=== PATIENT | female | born 1950 | race Caucasian/White ===

== ENCOUNTER 2020-11-14 13:34 | Outpatient (CLI) | payer OTHER, MEDICARE, SELFPAY | END 2020-11-14 13:35 | disposition home or self-care (01) | LOC: ANHCOVIDVC 13:34 | PROVIDERS: PCP Family Medicine Adolescent Medicine | DX: Z23 Encounter for immunization (principal) | CPT/HCPCS: 0001A; 91300 ==

== ENCOUNTER 2020-12-05 13:31 | Outpatient (CLI) | payer OTHER, MEDICARE, SELFPAY | END 2020-12-05 13:32 | disposition home or self-care (01) | LOC: ANHCOVIDVC 13:31 | PROVIDERS: PCP Family Medicine Adolescent Medicine | DX: Z23 Encounter for immunization (principal) | CPT/HCPCS: 0002A; 91300 ==

== ENCOUNTER → 2021-12-24 14:15 | Outpatient (CLI) | payer OTHER, SELFPAY ==
--- NOTE | ~2021-12-24 | MM_ITS ---
EXAMINATION: MM screening [facility] HISTORY: Screening mammogram TECHNIQUE: Craniocaudal and mediolateral oblique 3-D tomosynthesis images were obtained and synthetic 2-D images were generated. CAD analysis was submitted and interpreted. COMPARISON: 09/27/2019 diagnostic right mammogram 04/07/2019 diagnostic right mammogram and limited right breast ultrasound 04/02/2019 bilateral screening mammogram BREAST PARENCHYMAL COMPOSITION: There are scattered areas of fibroglandular density. FINDINGS: There is no evidence of suspicious mass, calcification, or architectural distortion to sugg est malignancy in either breast. There has been no suspicious interval change. IMPRESSION: 1. No mammographic evidence of malignancy. 2. Recommend routine screening mammography in one year. BI-RADS Category 1: Negative Reviewed, dictated and finalized at location A.
== END ==
PROVIDERS: PCP Family Medicine Adolescent Medicine; Visit Provider Family Medicine Adolescent Medicine
DX: Z12.31 Encounter for screening mammogram for malignant neoplasm of breast (principal)
CPT/HCPCS: 77063; 77067

== ENCOUNTER → 2022-06-20 09:32 | Outpatient (CLI) | payer OTHER, SELFPAY ==
--- NOTE | ~2022-06-20 | DEXA_ITS ---
Bone Density Report Name: SHAE JAMIL Age: 71 Sex: Female Ethnicity: White Date of : 1950 Indication: postmenopausal; screening for osteoporosis; height loss; Referring Provider: LURDES MONTOYA Study: Bone densitometry was performed. Exam Date: June 20, 2022 Accession number: [id number] Bone Density: Region BMD T-score Z-score Classification AP Spine (L1-L4) 1.169 1.1 3.4 Normal Femoral Neck (Left) 0.813 -0.3 1.7 Normal Total Hip (Left) 1.181 2.0 3.7 Normal Femoral Neck (Right) 0.825 -0.2 1.8 Normal Total Hip (Right) 1.163 1.8 3.5 Normal Total Hip Mean 1.172 1.9 3.6 Normal World Health Organization criteria for BMD impression classify patients as: Normal (T-score at or above -1.0), Osteopenia (T-score between -1.0 and -2.5), or Osteoporosis (T-score at or below -2.5). 10-year Fracture Risk: FRAX not reported because: All T-scores for Spine Total, Hip Total, Femoral Neck at or above -1.0 Previous Exams: Region Exam Age BMD T-score BMD Change BMD Change Date g/cm2 vs Baseline vs Previous AP Spine(L1-L4) 06/20/2022 71 1.169 1.1 0.017 0.009 10/20/2012 62 1.161 1.0 0.008 0.008 08/05/2008 57 1.152 1.0 Total Hip(Left) 06/20/2022 71 1.181 2.0 0.009 0.002 10/20/2012 62 1.179 1.9 0.007 0.007 08/05/2008 57 1.172 1.9 Total Hip(Right) 06/20/2022 71 1.163 1.8 0.017 0.004 10/20/2012 62 1.159 1.8 0.014 0.014 08/05/2008 57 1.146 1.7 *Denotes significance at 95% confidence level, LSC for AP Spine = 0.022 g/cm2, LSC for Total Hip = 0.027 g/cm2 Clinical Information Provided by Patient: Has used the following medications: Vitamin D, Calcium Patient maximum height was 66.7 Menopause Age: 44 Drinks caffeinated beverages Onset of menses at age 9 Number of children 1 Impression: The patient has normal bone mass. No significant bone loss was observed. Discussion: BONE DENSITY IS ABOVE THE MINIMUM DESIRABLE LEVEL AT ALL SKELETAL SITES TESTED. This patient?s bone mineral density is above the minimum desirable level (T-score -1.0 or better) at all sites measured. The patient should follow a healthful lifestyle (good nutrition with adequate calcium and vitamin D, and appropriate weight-bearing exercise). Follow-Up: Consider repeating this study in 5 years or sooner if there
== END ==
PROVIDERS: PCP Family Medicine Adolescent Medicine; Visit Provider Physician Assistant
DX: Z78.0 Asymptomatic menopausal state (principal)
CPT/HCPCS: 77080

== ENCOUNTER → 2023-01-20 13:11 | Outpatient (CLI) | payer OTHER, SELFPAY ==
--- NOTE | ~2023-01-20 | MM_ITS ---
EXAMINATION: MM screening [facility] HISTORY: Screening mammogram TECHNIQUE: Craniocaudal and mediolateral oblique 3-D tomosynthesis images were obtained and synthetic 2-D images were generated. CAD analysis was submitted and interpreted. COMPARISON: 12/24/2021, 10/01/2019, 04/07/2019, 04/02/2019 BREAST PARENCHYMAL COMPOSITION: There are scattered areas of fibroglandular density. FINDINGS: No suspicious mass, calcification, or architectural distortion are identified in either [place] ast to suggest malignancy. There has been no suspicious interval change. IMPRESSION: 1. No mammographic evidence of malignancy. 2. Recommend routine screening mammography in one year. BI-RADS Category 1: Negative Reviewed, dictated and finalized at location A.
== END ==
PROVIDERS: PCP Family Medicine Adolescent Medicine; Visit Provider Family Medicine Adolescent Medicine
DX: Z12.31 Encounter for screening mammogram for malignant neoplasm of breast (principal)
CPT/HCPCS: 77063; 77067

== ENCOUNTER 2024-02-03 14:22 | Outpatient (CLI) | payer OTHER, SELFPAY ==
--- NOTE | ~2024-02-03 | MM_ITS ---
EXAMINATION: MM screening [facility] HISTORY: Screening TECHNIQUE: Craniocaudal and mediolateral oblique 3-D tomosynthesis images were obtained and synthetic 2-D images were generated. CAD analysis was submitted and interpreted. COMPARISON: Comparison to multiple prior studies sequentially, with oldest reviewed study dated 02/27. BREAST PARENCHYMAL COMPOSITION: Not dense: There are scattered areas of fibroglandular density. FINDINGS: There is no evidence of suspicious mass, calcification, or architectural distortion to sugg est malignancy in either breast. There has been no suspicious interval change. IMPRESSION: 1. No mammographic evidence of malignancy. 2. Recommend routine screening mammography in one year. BI-RADS Category 1: Negative Reviewed, dictated and finalized at location B.
== END 2024-02-03 14:23 ==
LOC: MICIMG 14:24
PROVIDERS: PCP Family Medicine Adolescent Medicine; Visit Provider Family Medicine Adolescent Medicine
DX: Z12.31 Encounter for screening mammogram for malignant neoplasm of breast (principal)
CPT/HCPCS: 77063; 77067

== ENCOUNTER 2025-06-03 13:35 | Outpatient (CLI) | payer OTHER, SELFPAY ==
--- OUTSIDE RECORDS SUMMARY | 2001-08-12 19:00 | XMS_ITS | Continuity of Care Document ---
Author Organization [facility] Address [address] [place] [address] Phone Care Team Providers Care Power Press Operator Name Role Phone Ann OD, Greg Unavailable Unavailable Advance Directives Directive Yes / No Effective Date File Name No Information Encounters Encounter Description Practice Location Reason(s) For Visit Diagnoses Date Provider Providers Copied on Encounter [facility], [address], [place], [place], [id number], [place] tel:[phone] [facility] No Information Dec-0 6-200 1 Ann OD Greg. [address] , [address], [place], [address], [place]. tel:[phone] Family History Family Member Type Diagnosis Age At Onset No Information Payers Payer name Insurance type Covered alliance party ID Authoriza tion(s) No Information Social History Type Description Quantity Date Captured Comments Sex Female Smoking Status No Information Chief Complaint And Reason For Visit No Information Reason For Referral Reason For Referral No Information History Of Present Illness Encounter Date Complaint History Of Prese nt Illness No Information Functional Status Date Functional Assessmen t No Information Instructions Date Instruction Additional Infor mation No Information Assessments Type Assessment Date No Information Patient Care Teams Name Effective Dates (start - stop) Status Members No Information
--- OUTSIDE RECORDS SUMMARY | 2025-06-03 13:37 | XMS_ITS | Clinical Summary ---
Author Organization [facility] Address [address] [place] [address] Care Team Providers Care Entry Level Account Representative Name Role Phone Alex Valle MD Primary Care Provider [phone] Pop Hull MD Unavailable [phone] Allergies Active Allergy Reactions Criticality Noted Date Comments Griseofulvin Rash,Swelling Low 04/03/2016 Statins Myalgias 10/03/2016 Medications celecoxib (CELEBREX) 200 MG capsule Take 1 capsule by mouth daily. 6 Active levothyroxine 75 MCG tablet Take 1 tablet by mouth daily. 6 Active Cholecalciferol (VITAMIN D) 2000 UNITS Tab Take 1 tablet by mouth daily. 7 Active fish oil 1000 MG Cap capsule Take 1 capsule (1,000 mg total) by mouth daily. 90 capsule 9 Active diphenhydrAMINE HCl (BENADRYL OR) Take by mouth as needed. Active melatonin 5 MG tablet Take 5 mg by mouth nightly as needed. Active Multiple Vitamins-Minera ls (HAIR SKIN AND NAILS FORMULA OR) Active dilTIAZem CD (CARDIZEM CD) 180 MG 24 hr capsule Take 1 capsule (180 mg total) by mouth daily. 90 capsule 1 5 Active warfarin (COUMADIN) 5 MG tablet TAKE 2 TABLETS (10MG) BY MOUTH ON FRIDAY AND FRIDAY EVENINGS THEN TAKE 1.5 TABLETS (7.5MG) ALL OTHER EVENINGS 140 tablet Active Active Problems Problem Noted Date Diagnosed Date Essential hypertension 04/03/2016 Other hyperlipidemia 04/03/2016 Atrial fibrillation, chronic ([facility]) 0 03/15/2016 Atrial flutter ([facility]) Vitamin D deficiency Encounters Date Type Department Care Team Description 05/24/2025 Anti-Coag Telephone Call [facility] [address] [id number] Velvet [place] RN Anticoagulation (protime) 05/03/2025 Anti-Coag Telephone Call [facility] [address] [address] [place]vet [place], RN Anticoagulation (protime) 04/04/2025 Anti-Coag Telephone Call [facility] [phone] [place]vet [place], RN Anticoagulation (protime) 03/04/2025 Anti-Coag Telephone Call [facility] [phone] [place]vet [place], RN Anticoagulation (protime) from Last 3 Months Family History Medical History Relation Comments No premature vascular disease Other Relation Status Comments Other Social History Tobacco Use Types Packs/Day Years Used Date Smoking Tobacco: Former Smokeless Tobacco: Never Tobacco Cessation:Counseling Given: Not Answered Alcohol Use Standard Drinks/Week Comments Yes 0 (1 standard drink = 0.6 oz pur e alcohol) rarely Comments Unknown Sex and Gender Information Value Date Recorded Sex Assigned at Not on file Legal Sex Female 10:37 PM CDT Gender Identity Not on file Sexual Orientation Not on file Occupation Industry Job Start Date Job End Date Not on file Not on file Not on file Not on file Last Filed Vital Signs Vital Sign Reading Time Taken Comments Blood Pressure 130/78 02/15/2025 1:58 PM CDT Pulse 73 02/15/2025 1:58 PM CDT Temperature - - Respiratory Rate - - Oxygen Saturation 97% 02/15/2025 1:58 PM CDT Inhaled Oxygen Concentration - - Weight 69.9 kg (154 lb) 02/15/2025 1:58 PM CDT Height 165.1 cm (5' 5) 02/15/2025 1:58 PM CDT Body Mass Index 25.63 02/15/2025 1:58 PM CDT Plan of Treatment Upcoming Encounters Date Type Department Care Team (Late st Contact Info) Description 08/17/2025 1:45 PM LIGHT CLEANER Office Visit [facility], [facility] [address] [place], [place] [phone] Pop Hull MD Three [facility]. [address] [place], [place] [phone] Health Maintenance Due Date Last Done Comments Hepatitis C 1966 DTaP, Tdap and Td Vaccines (1 - Tdap) 1967 Pneumococcal Vaccine: 50+ Years (1 of 1 - PCV) 1998 Zoster Vaccines (1 of 2) 1998 Annual Medicare Wellness Visit 2013 Dexa Scan (General) 2013 RSV Immunization or 60+ Years (1 - 1-dose 75+ series) 2023 COVID-19 Vaccine ( season) 2025 06/14/2021, 12/05/2020, 12/05/2020, Additional history exists Meningococcal B Vaccine Aged Out No l onger eligible based on patient's age to complete this topic Meningococcal Vaccine Aged Out No maria elena kathy eligible based on patient's age to complete this topic RSV Immunizations Under 20 Months Aged Out No longer eligible based on patient's age to complete this topic Procedures Procedure Name Priority Date/Time Associated Diagnosis Comments PROTIME (OUTSIDE LAB) Routine 05/23/2025 PT/INR (OUTSIDE LAB) Routine 05/02/2025 PROTIME (OUTSIDE LAB) Routine 04/04/2025 PROTIME (OUTSIDE LAB) Routine 03/03/2025 from Last 3 Months Results * PROTIME (OUTSIDE LAB) (05/23/2025) Only the most recent of3 resultswithin the time period is included. PROTIME 32.4 INR 3.3 05/23/2025 us Default History Genericprovider LAB-OUTSIDE/ABST RACTED Final Result * PT/INR (OUTSIDE LAB) (05/02/2025) INR WHOLE BLOOD 3.50 05/02/2025 us Default History Genericprovider LAB-OUTSIDE/ABST RACTED Final Result from Last 3 Months [place] [id number] Care Teams Entry Level Account Representative Relationship Specialty Start Date End Date Alex Valle MD [address] [facility] [address] [place] [address] PCP - General FAMILY PRACTICE 03/08/16 Pop Hull MD [facility] [address] [place] [address] Una Countersinker CARDIOVASCULAR DISEASE 03/20/18
--- OUTSIDE RECORDS SUMMARY | 2025-06-03 13:37 | XMS_ITS | Encounter Summary ---
Author Organization [facility] Address [facility] [place] [address] Care Team Providers Care Auto Rebuilder Name Role Phone Alex Valle MD Primary Care Provider [phone] Pop Hull MD Unavailable [phone] Encounter Details Date Type Department Care Team (Late Contact Info) Description 07/24/2023 Abstract [facility] [facility], [facility] [address] [place] [address] Carol Ann Mayers MA Social History Tobacco Use Types Packs/Day Years Used Date Smoking Tobacco: Former Smokeless Tobacco: Never Alcohol Use Standard Drinks/Week Comments Yes 0 [...] file Not on file Not on file documented as of this encounter Plan of Treatment Upcoming Encounters Date Type Department Care Team (Late Contact Info) Description 08/17/2025 1:45 PM ADULT MANAGER Office Visit [facility], [place] [address] [place], [place] [phone] Pop Hull MD [address] [address] documented as of this encounter Procedures Procedure Name Priority Date/Time Associated Diagnosis Comments PROTIME (OUTSIDE LAB) Routine 05/23/2025 PROTIME (OUTSIDE LAB) Routine 04/04/2025 PROTIME (OUTSIDE LAB) Routine 03/03/2025 PROTIME (OUTSIDE LAB) Routine 02/04/2025 PROTIME (OUTSIDE LAB) Routine 12/01/2024 PROTIME (OUTSIDE LAB) Routine 11/01/2024 PROTIME (OUTSIDE LAB) Routine 09/06/2024 PROTIME (OUTSIDE LAB) Routine 07/05/2024 PROTIME (OUTSIDE LAB) Routine 03/30/2024 PROTIME (OUTSIDE LAB) Routine 02/27/2024 PROTIME (OUTSIDE LAB) Routine 01/16/2024 PROTIME (OUTSIDE LAB) Routine 12/12/2023 PROTIME (OUTSIDE LAB) Routine 10/07/2023 PROTIME (OUTSIDE LAB) Routine 09/02/2023 PROTIME (OUTSIDE LAB) Routine 07/23/2023 documented in this encounter Results * PROTIME (OUTSIDE LAB) (05/23/2025) PROTIME 32.4 INR 3.3 05/23/2025 us Default History Genericprovider LAB-OUTSIDE/ABST RACTED Final Result * PROTIME (OUTSIDE LAB) (04/04/2025) PROTIME 24.0 INR 2.4 04/04/2025 us Default History Genericprovider LAB-OUTSIDE/ABST RACTED Final Result * PROTIME (OUTSIDE LAB) (03/03/2025) PROTIME 22.8 INR 2.2 03/03/2025 us Default History Genericprovider LAB-OUTSIDE/ABST RACTED Final Result * PROTIME (OUTSIDE LAB) (02/04/2025) PROTIME 25.2 INR 2.5 02/04/2025 us Default History Genericprovider LAB-OUTSIDE/ABST RACTED Final Result * PROTIME (OUTSIDE LAB) (12/01/2024) PROTIME 28.2 INR 2.8 12/01/2024 us Default History Genericprovider LAB-OUTSIDE/ABST RACTED Final Result * PROTIME (OUTSIDE LAB) (11/01/2024) PROTIME 25.7 INR 2.6 11/01/2024 us Default History Genericprovider LAB-OUTSIDE/ABST RACTED Final Result * PROTIME (OUTSIDE LAB) (09/06/2024) PROTIME 41.9 INR 4.3 09/06/2024 us Default History Genericprovider LAB-OUTSIDE/ABST RACTED Final Result * PROTIME (OUTSIDE LAB) (07/05/2024) PROTIME 31.1 INR 3.1 07/05/2024 us Default History Genericprovider LAB-OUTSIDE/ABST RACTED Final Result * PROTIME (OUTSIDE LAB) (03/30/2024) PROTIME 21.0 INR 2.1 03/30/2024 us Default History Genericprovider LAB-OUTSIDE/ABST RACTED Final Result * PROTIME (OUTSIDE LAB) (02/27/2024) PROTIME 22.6 INR 2.2 02/27/2024 us Default History Genericprovider LAB-OUTSIDE/ABST RACTED Final Result * PROTIME (OUTSIDE LAB) (01/16/2024) PROTIME 25.1 INR 2.5 01/16/2024 us Default History Genericprovider LAB-OUTSIDE/ABST RACTED Final Result * PROTIME (OUTSIDE LAB) (12/12/2023) PROTIME 24.0 INR 2.4 12/12/2023 us Default History Genericprovider LAB-OUTSIDE/ABST RACTED Final Result * PROTIME (OUTSIDE LAB) (10/07/2023) PROTIME 23.3 INR 2.3 10/07/2023 us Default History Genericprovider LAB-OUTSIDE/ABST RACTED Final Result * PROTIME (OUTSIDE LAB) (09/02/2023) PROTIME 33.6 INR 3.4 09/02/2023 us Default History Genericprovider LAB-OUTSIDE/ABST RACTED Final Result * PROTIME (OUTSIDE LAB) (07/23/2023) PROTIME 20.7 INR 2.0 07/23/2023 us Default History Genericprovider LAB-OUTSIDE/ABST RACTED Final Result documented in this encounter Visit Diagnoses Not on filedocumented in this encounter Care Teams Auto Rebuilder Relationship Specialty Start Date End Date Alex Valle MD [address] [place] [address] [address] [place] [address] PCP - General FAMILY PRACTICE 03/08/16 Pop Hull MD [facility]. [facility] [address] [place] [address] [place] Dredge Operator Supervisor CARDIOVASCULAR DISEASE 03/20/18 documented as of this encounter
--- OUTSIDE RECORDS SUMMARY | 2025-06-03 13:37 | XMS_ITS | Encounter Summary ---
Author Organization [facility] Address [address] [place] [address] Care Team Providers Care International Logistics Coordinator Name Role Phone Richard Hein MD Unavailable Unavailable Alex Valle MD Primary Care Provider + [phone] Alex Valle MD Primary Care Provider + [phone] Pop Hull MD Unavailable [phone] Encounter Details Date Type Department Care Team (Late st Contact Info) Description 01/03/2016 Abstract [facility] AT [address] [address] Richard Hein MD Social History Tobacco Use Types Packs/Day Years Used Date Smoking Tobacco: Former Alcohol Use Standard Drinks/Week Comments Yes 0 (1 standard drink = 0.6 oz pur e alcohol) rarely Comments Unknown Sex and Gender Information Value Date Recorded Sex Assigned at Not on file Legal Sex Female 10:37 PM CDT Gender Identity Not on file Sexual Orientation Not on file Occupation Industry Job Start Date Job End Date Retired Not on file Not on file Not on file documented as of this encounter Plan of Treatment Upcoming Encounters Date Type Department Care Team (Late Contact Info) Description 08/17/2025 1:45 PM GASOLINE ENGINE INSPECTOR Office Visit [facility] THREE [facility], [place] [address] [place] [address] Pop Hull MD [address] [address] documented as of this encounter Visit Diagnoses Not on filedocumented in this encounter Care Teams International Logistics Coordinator Relationship Specialty Start Date End Date Alex Valle MD [address] [address] PCP - General FAMILY PRACTICE 03/08/16 Alex Valle MD [address] [address] PCP - General 01/11/16 03/07/16 Richard Hein MD [facility] Client Administrator CARDIOVASCULAR DISEASE 03/01/16 Pop Hull MD [facility]. [address] [place] [address] [place] Client Administrator CARDIOVASCULAR DISEASE 03/20/18 documented as of this encounter
--- OUTSIDE RECORDS SUMMARY | 2025-06-03 13:37 | XMS_ITS | Clinical Summary ---
Author Organization [facility] Address [address] [place] [address] Phone Care Team Providers Care Conveyor Belt Operator Name Role Phone Seda Chamberlain Primary Care Provider [phone] Allergies Active Allergy Reactions Criticality Noted Date Comments Griseofulvin Rash,Swelling Medium 04/03/2016 Mnmdgsb-Pqo-Vvq Reductase Inhibitors Mental status changes Low 10/03/2016 Medications warfarin (COUMADIN) 5 mg tablet 04/15/2022 Active levothyroxine (SYNTHROID) 75 mcg tablet 04/23/2022 Active docosahexaenoic acid-epa 120-180 mg capsule Take 1,000 mg by mouth daily 10/05/2018 Active diltiazem (TIAZAC) 180 mg 24 hr capsule Take 1 tablet by mouth daily 01/11/2021 Active cholecalciferol (VITAMIN D-3) 2000 unit tablet Take 1 tablet by mouth daily 10/03/2016 Active celecoxib (CeleBREX) 200 mg capsule 06/09/2022 Active phenazopyridine HCl (PHENAZOPYRIDINE ORAL) Take by mouth 2 (two) times a day Active multivitamin with minerals tablet Take by mouth Active DIPHENHYDRAMINE HCL ORAL Take by mouth as needed Active cod liver oiL oil Take by mouth daily Active Active Problems Problem Noted Date Diagnosed Date 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 Patient has scattered reticular veins to bilateral lower extremities. Patient denies swelling. Patient has not used compression therapy. Plan: Recommend medical grade compression stockings 20 30 mmHg. We will refer patient to Dr. Preston dermatology for further evaluation of reticular veins. Atrial flutter 06/26/2022 Vitamin D deficiency 06/26/2022 Essential hypertension 04/03/2016 Other hyperlipidemia 04/03/2016 Assessment & Plan (06/27/2022 10:48 AM CDT): Impression: Chronic hyperlipidemia, diet-controlled Plan: Continue management as per primary care provider. Atrial fibrillation, chronic 03/15/2016 Assessment & Plan (06/27/2022 10:49 AM CDT): Impression: Patient has a history of atrial fibrillation and is currently rate controlled. Patient is currently on Coumadin. Plan: Continue anticoagulation as per primary care provider. Immunizations Immunization Administration Dates Next Due Influenza, Trivalent, IM (MDV) 07/03/2012 Social History Tobacco Use Types Packs/Day Years Used Date Smoking Tobacco: Former Cigarettes 0.3 19 1 981 - 2000 Smokeless Tobacco: Never Tobacco Cessation:Counseling Given: No Personal Safety Answer Date Recorded Getting School Help Needed Not on file 10/18 Comments Unknown Sex and Gender Information Value Date Recorded Sex Assigned at Not on file Legal Sex Female 6:53 PM GEOPHYSICAL MANAGER Gender Identity Not on file Sexual Orientation Not on file Obstetrics History Last Filed Vital Signs Vital Sign Reading Time Taken Comments Blood Pressure - - Pulse - - Temperature - - Respiratory Rate - - Oxygen Saturation - - Inhaled Oxygen Concentration - - Weight 79.8 kg (176 lb) 06/26/2022 2:48 PM CDT Height 165.1 cm (5' 5) 06/26/2022 2:48 PM CDT Body Mass Index 29.29 06/26/2022 2:48 PM CDT Plan of Treatment Health Maintenance Due Date Last Done Comments Depression Screening 1950 Fall Risk Assessment 1950 Hepatitis C Screening 1950 Osteoporosis Screening-Bone Density Scan 1950 DTaP/Tdap/Td Vaccine (1 - Tdap) 1959 Hepatitis B Screening 1966 Pneumococcal vaccine 65+ (1 of 2 - PCV) 1967 Zoster Vaccine (1 of 2) 1998 Well Visit 65+ 2013 Influenza Vaccine (#1) 2025 07/03/2012 Insurance [facility] Care Teams Conveyor Belt Operator Relationship Specialty Start Date End Date Seda Chamberlain PA [address] [facility] [address] PCP - General Physician Wheel Loader Operator 06/25/22
--- OUTSIDE RECORDS SUMMARY | 2025-06-03 13:37 | XMS_ITS | Encounter Summary ---
Author Organization [facility] Address [facility] [place] [address] Care Team Providers Care Proctologist Name Role Phone Richard Hein MD Unavailable Unavailable Alex Valle MD Primary Care Provider + [phone] Alex Valle MD Primary Care Provider + [phone] Pop Hull MD Unavailable [phone] Encounter Details Date Type Department Care Team (Late st Contact Info) Description 03/01/2016 Abstract [facility] AT [address] [address] Carol Ann Mayers MA Social History Tobacco Use Types Packs/Day Years Used Date Smoking Tobacco: Former Comments Unknown Sex and Gender Information Value Date Recorded Sex Assigned at Not on file Legal Sex Female 10:37 PM CDT Gender Identity Not on file Sexual Orientation Not on file documented as of this encounter Plan of Treatment Upcoming Encounters Date Type Department Care Team (Late st Contact Info) Description 08/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 [address] [place], [place] [id number] documented as of this encounter Procedures Procedure Name Priority Date/Time Associated Diagnosis Comments PROTIME (OUTSIDE LAB) Routine 04/14/2020 LIPID PANEL Routine 04/14/2020 PROTIME (OUTSIDE LAB) Routine 03/16/2020 PROTIME (OUTSIDE LAB) Routine 12/14/2019 PROTIME (OUTSIDE LAB) Routine 11/24/2019 PROTIME (OUTSIDE LAB) Routine 10/19/2019 PROTIME (OUTSIDE LAB) Routine 06/28/2019 PROTIME (OUTSIDE LAB) Routine 04/26/2019 PROTIME (OUTSIDE LAB) Routine 03/25/2019 PROTIME (OUTSIDE LAB) Routine 02/24/2019 PROTIME (OUTSIDE LAB) Routine 02/05/2019 PROTIME (OUTSIDE LAB) Routine 01/01/2019 PROTIME (OUTSIDE LAB) Routine 12/01/2018 PROTIME (OUTSIDE LAB) Routine 11/03/2018 PROTIME (OUTSIDE LAB) Routine 10/05/2018 LIPID PANEL Routine 10/05/2018 PROTIME (OUTSIDE LAB) Routine 09/03/2018 PROTIME (OUTSIDE LAB) Routine 04/22/2018 COMPREHENSIVE METABOLIC PANEL Routine 03/04/2018 LIPID PANEL Routine 03/04/2018 HEMOGLOBIN, GLYCOSYLATED Routine 03/04/2018 THYROID STIM HORMONE TSH Routine 03/04/2018 PROTIME (OUTSIDE LAB) Routine 01/21/2018 PROTIME (OUTSIDE LAB) Routine 12/24/2017 PROTIME (OUTSIDE LAB) Routine 11/03/2017 PROTIME (OUTSIDE LAB) Routine 10/03/2017 PROTIME (OUTSIDE LAB) Routine 09/05/2017 PROTIME (OUTSIDE LAB) Routine 08/08/2017 PROTIME (OUTSIDE LAB) Routine 07/17/2017 PROTIME (OUTSIDE LAB) Routine 07/03/2017 PROTIME (OUTSIDE LAB) Routine 04/21/2017 PROTIME (OUTSIDE LAB) Routine 03/24/2017 PROTIME (OUTSIDE LAB) Routine 03/17/2017 PROTIME (OUTSIDE LAB) Routine 03/10/2017 PROTIME (OUTSIDE LAB) Routine 02/06/2017 PROTIME (OUTSIDE LAB) Routine 01/17/2017 COMPREHENSIVE METABOLIC PANEL Routine 01/17/2017 LIPID PANEL Routine 01/17/2017 HEMOGLOBIN, GLYCOSYLATED Routine 01/17/2017 PROTIME (OUTSIDE LAB) Routine 11/22/2016 PROTIME (OUTSIDE LAB) Routine 11/07/2016 PROTIME (OUTSIDE LAB) Routine 10/24/2016 PROTIME (OUTSIDE LAB) Routine 10/01/2016 PROTIME (OUTSIDE LAB) Routine 08/26/2016 ESR (OUTSIDE LAB) Routine 08/26/2016 HEMOGLOBIN Routine 08/26/2016 THYROID STIM HORMONE TSH Routine 08/26/2016 PROTIME (OUTSIDE LAB) Routine 07/31/2016 PROTIME (OUTSIDE LAB) Routine 06/13/2016 PROTIME (OUTSIDE LAB) Routine 05/16/2016 PROTIME (OUTSIDE LAB) Routine 05/03/2016 PROTIME (OUTSIDE LAB) Routine 04/12/2016 PROTIME (OUTSIDE LAB) Routine 03/28/2016 PROTIME (OUTSIDE LAB) Routine 03/14/2016 PROTIME (OUTSIDE LAB) Routine 03/07/2016 PROTIME (OUTSIDE LAB) Routine 02/29/2016 documented in this encounter Results * LIPID PANEL (04/14/2020) CHOLESTEROL 206 <200 HDL 45 > or = 50 TRIGLYCERIDES 323 <150 NON HDL CHOLESTEROL 161 <130 LDL (CALCULATED) 115 <100 04/14/2020 us Doc [facility] Final Result * PROTIME (OUTSIDE LAB) (04/14/2020) PROTIME 28.6 INR 2.9 04/14/2020 us Doc [facility] LAB-OUTSIDE/ABSTRACTED Final Result * PROTIME (OUTSIDE LAB) (03/16/2020) PROTIME 25.7 INR 2.6 03/16/2020 us Doc [facility] LAB-OUTSIDE/ABSTRACTED Final Result * PROTIME (OUTSIDE LAB) (12/14/2019) PROTIME 23.1 INR 2.3 12/14/2019 us Doc [facility] LAB-OUTSIDE/ABSTRACTED Final Result * PROTIME (OUTSIDE LAB) (11/24/2019) PROTIME 15.5 INR 1.5 11/24/2019 us Doc [facility] LAB-OUTSIDE/ABSTRACTED Final Result * PROTIME (OUTSIDE LAB) (10/19/2019) PROTIME 21.7 INR 2.2 10/19/2019 us Doc [facility] LAB-OUTSIDE/ABSTRACTED Final Result * PROTIME (OUTSIDE LAB) (06/28/2019) PROTIME 21.6 INR 2.2 06/28/2019 us Doc [facility] LAB-OUTSIDE/ABSTRACTED Final Result * PROTIME (OUTSIDE LAB) (04/26/2019) PROTIME 25.1 INR 2.6 04/26/2019 us Doc [facility] LAB-OUTSIDE/ABSTRACTED Final Result * PROTIME (OUTSIDE LAB) (03/25/2019) PROTIME 19.8 INR 2.0 03/25/2019 us Doc [facility] LAB-OUTSIDE/ABSTRACTED Final Result * PROTIME (OUTSIDE LAB) (02/24/2019) PROTIME 31.4 INR 3.3 02/24/2019 us Doc [facility] LAB-OUTSIDE/ABSTRACTED Final Result * PROTIME (OUTSIDE LAB) (02/05/2019) PROTIME 18.6 INR 1.9 02/05/2019 us Doc [facility] LAB-OUTSIDE/ABSTRACTED Final Result * PROTIME (OUTSIDE LAB) (01/01/2019) PROTIME 24.0 INR 2.5 01/01/2019 us Doc [facility] LAB-OUTSIDE/ABSTRACTED Final Result * PROTIME (OUTSIDE LAB) (12/01/2018) PROTIME 26.6 INR 2.7 12/01/2018 us Doc [facility] LAB-OUTSIDE/ABSTRACTED Final Result * PROTIME (OUTSIDE LAB) (11/03/2018) PROTIME 21.8 INR 2.2 11/03/2018 us Doc [facility] LAB-OUTSIDE/ABSTRACTED Final Result * PROTIME (OUTSIDE LAB) (10/05/2018) PROTIME 22.2 INR 2.3 10/05/2018 us Doc [facility] LAB-OUTSIDE/ABSTRACTED Final Result * LIPID PANEL (10/05/2018) CHOLESTEROL 202 HDL 41 TRIGLYCERIDES 262 NON HDL CHOLESTEROL 161 LDL (CALCULATED) 121 10/05/2018 us Doc [facility] Final Result * PROTIME (OUTSIDE LAB) (09/03/2018) Pathologist [facility] PROTIME 22.1 INR 2.2 09/03/2018 us Doc [facility] LAB-OUTSIDE/ABSTRACTED Final Result * PROTIME (OUTSIDE LAB) (04/22/2018) Pathologist [facility] PROTIME 27.4 INR 2.8 04/22/2018 us Doc [facility] LAB-OUTSIDE/ABSTRACTED Final Result * THYROID STIM HORMONE, TSH (03/04/2018) [facility] TSH 1.24 03/04/2018 us Doc [facility] Edited Resul t - Final * HEMOGLOBIN, GLYCOSYLATED (03/04/2018) [facility] HGB A1C 5.6 03/04/2018 us Doc [facility] Edited Resul t - Final * (ABNORMAL) COMPREHENSIVE METABOLIC PANEL (03/04/2018) Pathologist [facility] SODIUM S/P/B 140 POTASSIUM S/P/B 4.0 CO2 23 CHLORIDE S/P/B 106 GLUCOSE 106 mg/dL CALCIUM S/P/B 8.9 BUN 10 CREATININE S/P/B 0.67 0.5 - 1.0 EGFR AFR. AMER. 104(A) <=90 EGFR NON-AFR. AMER. 90 <=90 ALKALINE PHOSPHATASE S/P/B 93 ALT 38 AST 30 BILIRUBIN TOTAL S/P/B 0.7 ALBUMIN S/P/B 3.8 3.5 - 5.0 TOTAL PROTEIN S/P/B 6.2 GLOBULIN 2.4 03/04/2018 us Doc [facility] Final Result * LIPID PANEL (03/04/2018) CHOLESTEROL 202 HDL 42 TRIGLYCERIDES 159 NON HDL CHOLESTEROL 160 LDL (CALCULATED) 131 03/04/2018 us Doc [facility] Edited Resul t - Final * PROTIME (OUTSIDE LAB) (01/21/2018) PROTIME 36.0 INR 3.4 01/21/2018 us Doc [facility] LAB-OUTSIDE/ABSTRACTED Final Result * PROTIME (OUTSIDE LAB) (12/24/2017) PROTIME 28.3 INR 2.7 12/24/2017 us Doc [facility] LAB-OUTSIDE/ABSTRACTED Final Result * PROTIME (OUTSIDE LAB) (11/03/2017) PROTIME 26.8 INR 2.5 11/03/2017 us Doc [facility] LAB-OUTSIDE/ABSTRACTED Final Result * PROTIME (OUTSIDE LAB) (10/03/2017) PROTIME 26.8 INR 2.5 10/03/2017 us Doc [facility] LAB-OUTSIDE/ABSTRACTED Final Result * PROTIME (OUTSIDE LAB) (09/05/2017) PROTIME 31.9 INR 3.0 09/05/2017 us Doc [facility] LAB-OUTSIDE/ABSTRACTED Edite d Result - Final * PROTIME (OUTSIDE LAB) (08/08/2017) PROTIME 27.5 INR 2.6 08/08/2017 us Doc [facility] LAB-OUTSIDE/ABSTRACTED Final Result * PROTIME (OUTSIDE LAB) (07/17/2017) PROTIME 31.2 INR 3.0 07/17/2017 us Doc [facility] LAB-OUTSIDE/ABSTRACTED Final Result * PROTIME (OUTSIDE LAB) (07/03/2017) PROTIME 27.0 INR 2.5 07/03/2017 us Doc [facility] LAB-OUTSIDE/ABSTRACTED Final Result * PROTIME (OUTSIDE LAB) (04/21/2017) PROTIME 24.4 INR 2.3 04/21/2017 us Doc [facility] LAB-OUTSIDE/ABSTRACTED Final Result * PROTIME (OUTSIDE LAB) (03/24/2017) PROTIME 20.5 INR 1.9 03/24/2017 us Doc [facility] LAB-OUTSIDE/ABSTRACTED Final Result * PROTIME (OUTSIDE LAB) (03/17/2017) PROTIME 25.5 INR 2.4 03/17/2017 us Doc [facility] LAB-OUTSIDE/ABSTRACTED Final Result * PROTIME (OUTSIDE LAB) (03/10/2017) PROTIME 35.9 INR 3.5 03/10/2017 Doc [facility] LAB-OUTSIDE/ABSTRACTED Final Result * PROTIME (OUTSIDE LAB) (02/06/2017) PROTIME 26.1 INR 2.6 02/06/2017 [facility] LAB-OUTSIDE/ABSTRACTED Final Result * HEMOGLOBIN, GLYCOSYLATED (01/17/2017) HGB A1C 5.4 01/17/2017 [facility] Edited Resul t - Final * COMPREHENSIVE METABOLIC PANEL (01/17/2017) SODIUM S/P/B 141 POTASSIUM S/P/B 3.5 CO2 28 CHLORIDE S/P/B 103 GLUCOSE 98 CALCIUM S/P/B 9.5 BUN 19 CREATININE S/P/B 0.89 0.5 - 1.0 EGFR AFR. AMER. 77 <=90 EGFR NON-AFR. AMER. 67 <=90 ALKALINE PHOSPHATASE S/P/B 90 ALT 34 AST 33 BILIRUBIN TOTAL S/P/B 0.6 ALBUMIN S/P/B 4.3 3.5 - 5.0 TOTAL PROTEIN S/P/B 6.9 GLOBULIN 2.6 01/17/2017 [facility] Edited Resul t - Final * LIPID PANEL (01/17/2017) CHOLESTEROL 224 HDL 44 TRIGLYCERIDES 193 NON HDL CHOLESTEROL 180 LDL (CALCULATED) 141 01/17/2017 [facility] Final Result * PROTIME (OUTSIDE LAB) (01/17/2017) PROTIME 40.2 INR 3.9 01/17/2017 us Doc [facility] LAB-OUTSIDE/ABSTRACTED Final Result * PROTIME (OUTSIDE LAB) (11/22/2016) PROTIME 25.2 INR 2.4 11/22/2016 us Doc [facility] LAB-OUTSIDE/ABSTRACTED Final Result * PROTIME (OUTSIDE LAB) (11/07/2016) PROTIME 18.4 INR 1.8 11/07/2016 us Doc [facility] LAB-OUTSIDE/ABSTRACTED Final Result * PROTIME (OUTSIDE LAB) (10/24/2016) PROTIME 17.3 INR 1.7 10/24/2016 us Doc [facility] LAB-OUTSIDE/ABSTRACTED Final Result * PROTIME (OUTSIDE LAB) (10/01/2016) PROTIME 20 INR 1.9 10/01/2016 us Doc [facility] LAB-OUTSIDE/ABSTRACTED Final Result * ESR (OUTSIDE LAB) (08/26/2016) SED RATE 9 0 - 30 mm/hr 08/26/2016 us Doc [facility] LAB-OUTSIDE/ABSTRACTED Final Result * Hemoglobin (08/26/2016) HGB 15.0 08/26/2016 us Doc [facility] Final Result * THYROID STIM HORMONE, TSH (08/26/2016) TSH 3.38 08/26/2016 Doc [facility] Edited Resul t - Final * PROTIME (OUTSIDE LAB) (08/26/2016) PROTIME 23.9 INR 2.3 08/26/2016 Doc [facility] LAB-OUTSIDE/ABSTRACTED Final Result * PROTIME (OUTSIDE LAB) (07/31/2016) PROTIME 20.5 INR 2.0 07/31/2016 [facility] LAB-OUTSIDE/ABSTRACTED Final Result * PROTIME (OUTSIDE LAB) (06/13/2016) PROTIME 23.0 INR 2.2 06/13/2016 Doc [facility] LAB-OUTSIDE/ABSTRACTED Final Result * PROTIME (OUTSIDE LAB) (05/16/2016) PROTIME 25.3 INR 2.4 05/16/2016 Result [facility] Richard Hein MD LAB-OUTSIDE/ABSTRACTED Edited R esult - Final * PROTIME (OUTSIDE LAB) (05/03/2016) PROTIME 41.0 INR 4.0 05/03/2016 Result [facility] Richard Hein MD LAB-OUTSIDE/ABSTRACTED Edited R esult - Final * PROTIME (OUTSIDE LAB) (04/12/2016) PROTIME 26.7 INR 2.6 04/12/2016 Result [facility] Richard Hein MD LAB-OUTSIDE/ABSTRACTED Final Re sult * PROTIME (OUTSIDE LAB) (03/28/2016) PROTIME 22.9 INR 2.2 03/28/2016 Result [facility] Richard Hein MD LAB-OUTSIDE/ABSTRACTED Final Re sult * PROTIME (OUTSIDE LAB) (03/14/2016) PROTIME 36.4 INR 3.5 03/14/2016 Result [facility] Richard Hein MD LAB-OUTSIDE/ABSTRACTED Final Re sult * PROTIME (OUTSIDE LAB) (03/07/2016) PROTIME 35.3 INR 3.4 03/07/2016 Result [facility] Richard Hein MD LAB-OUTSIDE/ABSTRACTED Edited R esult - Final * PROTIME (OUTSIDE LAB) (02/29/2016) PROTIME 14.8 INR 1.4 02/29/2016 Result [facility] Richard Hein MD LAB-OUTSIDE/ABSTRACTED Final Re sult documented in this encounter Visit Diagnoses Not on filedocumented in this encounter Care Teams Proctologist Relationship Specialty Start Date End Date Alex Valle MD [address] [address] PCP - General FAMILY PRACTICE 03/08/16 Alex Valle MD [address] [address] PCP - General 01/11/16 03/07/16 Richard Hein MD Jhoana Level Vial Curvature [facility]er CARDIOVASCULAR DISEASE 03/01/16 Pop Hull MD Three [facility]. [facility] [address] [place], [place] [address] Jhoana Level Vial Curvature Gauger CARDIOVASCULAR DISEASE 03/20/18 documented as of this encounter
--- OUTSIDE RECORDS SUMMARY | 2025-06-03 13:37 | XMS_ITS | Encounter Summary ---
Author Organization [facility] Address [address] [place] [address] Care Team Providers Care Historiography Professor Name Role Phone Alex Valle MD Primary Care Provider [phone] Pop Hull MD Unavailable [phone] Encounter Details Date Type Department Care Team (Late Contact Info) Description 05/17/2020 Abstract [facility] at [address] [address] Carol Ann Mayers MA Social History [...] file Not on file Not on file COVID-19 Exposure Response Date Recorded In the last month, have you been in contact with someone who was confirmed or suspected to have Coronavirus / COVID-19? 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 [address] [place] [address] documented as of this encounter Procedures Procedure Name Priority Date/Time Associated Diagnosis Comments PROTIME (OUTSIDE LAB) Routine 06/01/2024 PROTIME (OUTSIDE LAB) Routine 11/10/2023 HEMOGLOBIN, GLYCOSYLATED Routine 07/23/2023 COMPREHENSIVE METABOLIC PANEL Routine 07/23/2023 LIPID PANEL Routine 07/23/2023 THYROID STIM HORMONE TSH Routine 07/23/2023 PROTIME (OUTSIDE LAB) Routine 05/23/2023 PROTIME (OUTSIDE LAB) Routine 03/27/2023 PROTIME (OUTSIDE LAB) Routine 11/27/2022 PROTIME (OUTSIDE LAB) Routine 10/04/2022 PROTIME (OUTSIDE LAB) Routine 09/05/2022 PROTIME (OUTSIDE LAB) Routine 07/31/2022 PROTIME (OUTSIDE LAB) Routine 06/20/2022 HEMOGLOBIN, GLYCOSYLATED Routine 06/20/2022 COMPREHENSIVE METABOLIC PANEL Routine 06/20/2022 LIPID PANEL Routine 06/20/2022 THYROID STIM HORMONE TSH Routine 06/20/2022 PROTIME (OUTSIDE LAB) Routine 05/23/2022 PROTIME (OUTSIDE LAB) Routine 04/10/2022 PROTIME (OUTSIDE LAB) Routine 03/13/2022 PROTIME (OUTSIDE LAB) Routine 02/11/2022 PROTIME (OUTSIDE LAB) Routine 01/10/2022 PROTIME (OUTSIDE LAB) Routine 11/08/2021 PROTIME (OUTSIDE LAB) Routine 10/04/2021 PROTIME (OUTSIDE LAB) Routine 09/05/2021 PROTIME (OUTSIDE LAB) Routine 08/21/2021 PROTIME (OUTSIDE LAB) Routine 08/06/2021 PROTIME (OUTSIDE LAB) Routine 06/26/2021 LIPID PANEL Routine 06/26/2021 PROTIME (OUTSIDE LAB) Routine 05/30/2021 PROTIME (OUTSIDE LAB) Routine 05/02/2021 PROTIME (OUTSIDE LAB) Routine 04/12/2021 PROTIME (OUTSIDE LAB) Routine 02/20/2021 PROTIME (OUTSIDE LAB) Routine 01/18/2021 PROTIME (OUTSIDE LAB) Routine 12/15/2020 PROTIME (OUTSIDE LAB) Routine 11/17/2020 PROTIME (OUTSIDE LAB) Routine 10/20/2020 PROTIME (OUTSIDE LAB) Routine 09/19/2020 PROTIME (OUTSIDE LAB) Routine 08/17/2020 PROTIME (OUTSIDE LAB) Routine 07/18/2020 PROTIME (OUTSIDE LAB) Routine 06/12/2020 PROTIME (OUTSIDE LAB) Routine 05/16/2020 documented in this encounter Results * PROTIME (OUTSIDE LAB) (06/01/2024) PROTIME 22.0 INR 2.2 06/01/2024 us Default History Genericprovider LAB-OUTSIDE/ABST RACTED Final Result * PROTIME (OUTSIDE LAB) (11/10/2023) Pathologist [facility] PROTIME 21.2 INR 2.1 11/10/2023 us Default History Genericprovider LAB-OUTSIDE/ABST RACTED Final Result * COMPREHENSIVE METABOLIC PANEL (07/23/2023) Pathologist [facility] SODIUM S/P/B 142 GLUCOSE 75 mg/dL AST 27 BUN 22 CREATININE S/P/B 0.71 0.5 - 1.0 CALCIUM S/P/B 9.3 POTASSIUM S/P/B 4.0 CHLORIDE S/P/B 106 ALT 22 GFR ESTIMATE 89 us Default History Genericprovider LABORATORY Edited Result - Final * LIPID PANEL (07/23/2023) Pathologist [facility] CHOLESTEROL 167 TRIGLYCERIDES 60 HDL 50 LDL (CALCULATED) 102 NON HDL CHOLESTEROL 117 us Default History Genericprovider LABORATORY Edited Result - Final * HEMOGLOBIN, GLYCOSYLATED (07/23/2023) Pathologist [facility] HGB A1C 5.1 % us Default History Genericprovider LABORATORY Edited Result - Final * THYROID STIM HORMONE, TSH (07/23/2023) Pathologist [facility] TSH 3.34 us Default History Genericprovider LABORATORY Edited Result - Final * PROTIME (OUTSIDE LAB) (05/23/2023) PROTIME 24.2 INR 2.4 05/23/2023 us Default History Genericprovider LAB-OUTSIDE/ABST RACTED Final Result * PROTIME (OUTSIDE LAB) (03/27/2023) Pathologist [facility] PROTIME 21.4 INR 2.1 03/27/2023 us Default History Genericprovider LAB-OUTSIDE/ABST RACTED Final Result * PROTIME (OUTSIDE LAB) (11/27/2022) PROTIME 19.8 INR 2.1 11/27/2022 us Default History Genericprovider LAB-OUTSIDE/ABST RACTED Final Result * PROTIME (OUTSIDE LAB) (10/04/2022) PROTIME 25.5 INR 2.7 10/04/2022 us Default History Genericprovider LAB-OUTSIDE/ABST RACTED Final Result * PROTIME (OUTSIDE LAB) (09/05/2022) PROTIME 27.7 INR 3.0 09/05/2022 us Default History Genericprovider LAB-OUTSIDE/ABST RACTED Final Result * PROTIME (OUTSIDE LAB) (07/31/2022) Pathologist [facility] PROTIME 20.3 INR 2.1 07/31/2022 us Default History Genericprovider LAB-OUTSIDE/ABST RACTED Final Result * COMPREHENSIVE METABOLIC PANEL (06/20/2022) [facility] SODIUM S/P/B 144 GLUCOSE 79 mg/dL AST 30 BUN 16 CREATININE S/P/B 0.80 0.5 - 1.0 CALCIUM S/P/B 9.6 POTASSIUM S/P/B 4.2 CHLORIDE S/P/B 105 ALT 29 GFR ESTIMATE 78 us Default History Genericprovider LABORATORY Final Result * LIPID PANEL (06/20/2022) [facility] CHOLESTEROL 191 TRIGLYCERIDES 81 HDL 44 LDL (CALCULATED) 129 NON HDL CHOLESTEROL 147 us Default History Genericprovider LABORATORY Final Result * HEMOGLOBIN, GLYCOSYLATED (06/20/2022) [facility] HGB A1C 5.3 % Default History Genericprovider LABORATORY Final Result * THYROID STIM HORMONE, TSH (06/20/2022) [facility] TSH 2.91 Default History Genericprovider LABORATORY Final Result * PROTIME (OUTSIDE LAB) (06/20/2022) [facility] PROTIME 25.0 INR 2.7 06/20/2022 Default History Genericprovider LAB-OUTSIDE/ABST RACTED Edited Result - Final * PROTIME (OUTSIDE LAB) (05/23/2022) [facility] PROTIME 22.7 INR 2.4 05/23/2022 Doc [facility] LAB-OUTSIDE/ABSTRACTED Final Result * PROTIME (OUTSIDE LAB) (04/10/2022) PROTIME 24.5 INR 2.6 04/10/2022 us Doc [facility] LAB-OUTSIDE/ABSTRACTED Final Result * PROTIME (OUTSIDE LAB) (03/13/2022) PROTIME 19.8 INR 2.1 03/13/2022 us Doc [facility] LAB-OUTSIDE/ABSTRACTED Final Result * PROTIME (OUTSIDE LAB) (02/11/2022) PROTIME 26.1 INR 2.8 02/11/2022 us Doc [facility] LAB-OUTSIDE/ABSTRACTED Final Result * PROTIME (OUTSIDE LAB) (01/10/2022) PROTIME 16.9 INR 1.7 01/10/2022 us Doc [facility] LAB-OUTSIDE/ABSTRACTED Final Result * PROTIME (OUTSIDE LAB) (11/08/2021) PROTIME 20.1 INR 2.1 11/08/2021 us Doc [facility] LAB-OUTSIDE/ABSTRACTED Final Result * PROTIME (OUTSIDE LAB) (10/04/2021) PROTIME 22.4 INR 2.4 10/04/2021 us Doc [facility] LAB-OUTSIDE/ABSTRACTED Final Result * PROTIME (OUTSIDE LAB) (09/05/2021) PROTIME 21.8 INR 2.2 09/05/2021 us Doc [facility] LAB-OUTSIDE/ABSTRACTED Final Result * PROTIME (OUTSIDE LAB) (08/21/2021) Pathologist [facility] PROTIME 16.5 INR 1.7 08/21/2021 us Doc [facility] LAB-OUTSIDE/ABSTRACTED Final Result * PROTIME (OUTSIDE LAB) (08/06/2021) Pathologist [facility] PROTIME 17.5 INR 1.7 08/06/2021 us Doc [facility] LAB-OUTSIDE/ABSTRACTED Final Result * LIPID PANEL (06/26/2021) Pathologist [facility] CHOLESTEROL 185 HDL 40 TRIGLYCERIDES 128 NON HDL CHOLESTEROL 145 LDL (CALCULATED) 121 06/26/2021 us Doc [facility] Final Result * PROTIME (OUTSIDE LAB) (06/26/2021) Pathologist [facility] PROTIME 20.3 INR 2.1 06/26/2021 us Doc [facility] LAB-OUTSIDE/ABSTRACTED Final Result * PROTIME (OUTSIDE LAB) (05/30/2021) Pathologist [facility] PROTIME 20.4 INR 2.0 05/30/2021 us Doc [facility] LAB-OUTSIDE/ABSTRACTED Final Result * PROTIME (OUTSIDE LAB) (05/02/2021) Pathologist [facility] PROTIME 23.7 INR 2.4 05/02/2021 us Doc [facility] LAB-OUTSIDE/ABSTRACTED Final Result * PROTIME (OUTSIDE LAB) (04/12/2021) PROTIME 19.2 INR 1.9 04/12/2021 us Doc [facility] LAB-OUTSIDE/ABSTRACTED Final Result * PROTIME (OUTSIDE LAB) (02/20/2021) PROTIME 22.1 INR 2.2 02/20/2021 us Doc [facility] LAB-OUTSIDE/ABSTRACTED Final Result * PROTIME (OUTSIDE LAB) (01/18/2021) PROTIME 22.2 INR 2.2 01/18/2021 us Doc [facility] LAB-OUTSIDE/ABSTRACTED Final Result * PROTIME (OUTSIDE LAB) (12/15/2020) PROTIME 22.4 INR 2.2 12/15/2020 us Doc [facility] LAB-OUTSIDE/ABSTRACTED Final Result * PROTIME (OUTSIDE LAB) (11/17/2020) PROTIME 23.1 INR 2.3 11/17/2020 us Doc [facility] LAB-OUTSIDE/ABSTRACTED Final Result * PROTIME (OUTSIDE LAB) (10/20/2020) PROTIME 23.5 INR 2.4 10/20/2020 us Doc [facility] LAB-OUTSIDE/ABSTRACTED Final Result * PROTIME (OUTSIDE LAB) (09/19/2020) PROTIME 24.9 INR 2.5 09/19/2020 us Doc [facility] LAB-OUTSIDE/ABSTRACTED Final Result * PROTIME (OUTSIDE LAB) (08/17/2020) PROTIME 28.7 INR 2.9 08/17/2020 us Doc [facility] LAB-OUTSIDE/ABSTRACTED Final Result * PROTIME (OUTSIDE LAB) (07/18/2020) PROTIME 27.8 INR 2.8 07/18/2020 us Doc [facility] LAB-OUTSIDE/ABSTRACTED Final Result * PROTIME (OUTSIDE LAB) (06/12/2020) PROTIME 29.6 INR 3.0 06/12/2020 [facility]-OUTSIDE/ABSTRACTED Final Result * PROTIME (OUTSIDE LAB) (05/16/2020) PROTIME 26.6 INR 2.7 05/16/2020 [facility]-OUTSIDE/ABSTRACTED Final Result documented in this encounter Visit Diagnoses Not on filedocumented in this encounter Care Teams Historiography Professor Relationship Specialty Start Date End Date Alex Valle MD [address] [place] [address] [address] [place] [address] PCP - General FAMILY PRACTICE 03/08/16 Pop Hull MD [facility]. [address] [place] [address] [place] [employer] CARDIOVASCULAR DISEASE 03/20/18 documented as of this encounter
== END 2025-06-03 13:36 | disposition home or self-care (01) ==
LOC: ANHAUDIO 13:35
PROVIDERS: PCP Family Medicine; Visit Provider Otolaryngology
DX: H91.93 Unspecified hearing loss, bilateral (principal)
CPT/HCPCS: 92557; 92567

== ENCOUNTER 2025-06-22 11:58 | Outpatient (CLI) | payer OTHER, SELFPAY ==
--- NOTE | ~2025-06-22 | MM_ITS ---
EXAMINATION: MM screening patricia BI w rakesh HISTORY: Screening TECHNIQUE: Craniocaudal and mediolateral oblique 3-D tomosynthesis images were obtained and synthetic 2-D images were generated. CAD analysis was submitted and interpreted. COMPARISON: 01/20/2023 BREAST PARENCHYMAL COMPOSITION: There are scattered areas of fibroglandular density. FINDINGS: There is no evidence of suspicious mass, calcification, or architectural distortion to suggest malignancy. There has been no suspicious interval change. IMPRESSION: 1. No mammographic evidence of malignancy. Recommend routine screening mammography in one year. BI-RADS Category 2: Benign finding(s) Reviewed, dictated and finalized at location Q. IMPRESSION: 1. No mammographic evidence of malignancy. Recommend routine screening mammogra phy in one year. BI-RADS Category 2: Benign finding(s)
== END 2025-06-22 11:59 | disposition home or self-care (01) ==
LOC: MICIMG 11:59
PROVIDERS: PCP Family Medicine; Visit Provider Family Medicine Adolescent Medicine
DX: Z12.31 Encounter for screening mammogram for malignant neoplasm of breast (principal)
CPT/HCPCS: 77063; 77067

== ENCOUNTER 2025-06-22 12:31 | Outpatient (CLI) | payer OTHER, SELFPAY ==
--- NOTE | ~2025-06-22 | DEXA_ITS ---
Bone Density Report Name: SHAE JAMIL Age: 74 Sex: Female Ethnicity: White Date of : 1950 Indication: postmenopausal; screening for osteoporosis; height loss; Referring Provider: LUIZA HERNANDEZ Study: Bone densitometry was performed. Exam Date: June 22, 2025 Accession number: [id number] Bone Density: Region BMD T-score Z-score Classification AP Spine(L1-L4) 1.157 1.0 3.5 Normal Femoral Neck (Left) 0.783 -0.6 1.6 Normal Total Hip (Left) 1.053 0.9 2.8 Normal Femoral Neck (Right) 0.752 -0.9 1.3 Normal Total Hip (Right) 1.009 0.5 2.4 Normal Total Hip Mean 1.031 0.7 2.6 Normal World Health Organization criteria for BMD impression classify patients as: Normal (T-score at or above -1.0), Osteopenia (T-score between -1.0 and -2.5), or Osteoporosis (T-score at or below -2.5). 10-year Fracture Risk: FRAX not reported because: All T-scores for Spine Total, Hip Total, Femoral Neck at or above -1.0 Previous Exams: -- Region Exam Age BMD T-score BMD Change BMD Change Date g/cm2 vs Baseline vs Previous -- AP Spine (L1-L4) 06/22/2025 74 1.157 1.0 0.4% -1.1% 06/20/2022 71 1.169 1.1 1.5% 0.8%# 10/20/2012 62 1.161 1.0 0.7%# 0.7%# 08/05/2008 57 1.152 1.0 Total Hip(Left) 06/22/2025 74 1.053 0.9 -10.2%* -10.9%* 06/20/2022 71 1.181 2.0 0.8% 0.2%# 10/20/2012 62 1.179 1.9 0.6%# 0.6%# 08/05/2008 57 1.172 1.9 Total Hip(Right) 06/22/2025 74 1.009 0.5 -11.9%* -13.2%* 06/20/2022 71 1.163 1.8 1.5% 0.3%# 10/20/2012 62 1.159 1.8 1.2%# 1.2%# 08/05/2008 57 1.146 1.7 -- *Denotes significance at 95% confidence level, LSC for AP Spine = 0.022 g/cm2, LSC for Total Hip = 0.027 g/cm2 # Denotes dissimilar scan types or analysis methods Clinical Information Provided by Patient: Has used the following medications: Vitamin D Patient maximum height was 66 Menopause Age: 44 No regular weight bearing exercise Does not regularly consume dairy products Drinks caffeinated beverages Onset of menses at age 9 Number of children 1 Impression: The patient has normal bone mass. The BMD for the Total Hip(Left) decreased, changing by -10.9% since the last DXA exam. The BMD for the Total Hip(Right) decreased, changing by -13.2% since the last DXA exam. Discussion: BONE DENSITY IS ABOVE THE MINIMUM DESIRABLE LEVEL AT ALL SKELETAL SITES TESTED. This patient?s bone mineral density is above the minimum desirable level (T-score -1.0 or better) at all sites measured. The patient should follow a healthful lifestyle (good nutrition with adequate calcium and vitamin D, and appropriate weight-bearing exercise). Follow-Up: Consider repeating this study in 3 to 4 years to reassess this patient's status, or sooner if there is some new clinical indication. Reported by: MIKE on 06/22/2025 12:56:00 PM. Reviewed, dictated and finalized at location A.
== END 2025-06-22 12:32 | disposition home or self-care (01) ==
LOC: MICIMG 12:32
PROVIDERS: PCP Family Medicine; Visit Provider Family Medicine
DX: Z13.820 Encounter for screening for osteoporosis (principal); Z78.0 Asymptomatic menopausal state
CPT/HCPCS: 77080